=== PATIENT | male | born 1980 | race Caucasian/White ===

== ENCOUNTER 2022-05-04 15:21 | Emergency (ER) | payer SELFPAY ==
[~2022-05-04] VITALS: Ht 172.7 cm; Wt 77.2 kg
[~2022-05-04 15:21] MED LIST: KEFLEX500 M1 PO; KEFLEX500 MG PO; LORTAB 5/3255 MG PO; NAPROSYN500 MG OR; NORCO1 TA1 PO; TAM75CAP OR
[2022-05-04 15:49] VITALS: BP 144/116
[2022-05-04 16:00] VITALS: BP 133/110
[2022-05-04] MEDS ORDERED: CLEOCIN300 MG PO (16:02)
[2022-05-04 16:10] VITALS: BP 133/110
== END 2022-05-04 16:16 | disposition home or self-care (01) | DRG 158 ==
LOC: ED 15:21
DX: K03.81 Cracked tooth (principal); R44.0 Auditory hallucinations; F17.200 Nicotine dependence, unspecified, uncomplicated

== ENCOUNTER 2024-12-20 05:52 | Emergency (ER) | payer SELFPAY ==
[2024-12-20] VITALS (13 sets, daily range): BP systolic 106–130; BP diastolic 67–83
[~2024-12-20] VITALS: Ht 172.7 cm; Wt 85.0 kg
[~2024-12-20 05:52] MED LIST changes: +CLEOCIN300 MG PO
[2024-12-20] MEDS ORDERED: SODIUM CHLORIDE 0.9% 1,000 ML IV ONE ×2 (06:00→07:40)
[2024-12-20] MEDS ORDERED: diazePAM 10 MG/2 ML VIAL IV ONE (06:00)
[2024-12-20 06:16] LABS: BASO% 0.7 % (0-3); EOS% 0.8 % (0-8); HEMATOCRIT 43.5 % (39.0-50.0); HEMOGLOBIN 14.3 g/dl (14.0-18.0); IMMATURE GRANULOCYTES 0.1 % (0.0-5.0); LYMPH% 14.6 % (15-41); MEAN CELL VOLUME 93.3 fL CALC (80.0-100.0); MEAN CORPUSCULAR HGB 30.7 pG CALC (26.0-32.0); MEAN CORPUSCULAR HGB CONC 32.9 g/dL CAL (32.0-36.0); MONO% 11.9 % (2-13); NEUT# 7.14 thou/uL (1.82-7.42); NEUT% 71.9 % (42-76); RED BLOOD COUNT 4.66 mill/uL (4.70-6.10)
[2024-12-20 06:28] LABS: ALBUMIN 4.9 g/dL (3.2-5.0); ALKALINE PHOSPHATASE 76 u/l (38-126); ANION GAP 13 (6-22 (CALC)); BUN 23 mg/dL (9-20); BUN/CREATININE RATIO 18 (12-20 (CALC)); CARBON DIOXIDE 24 mmol/l (22-30); CHLORIDE 108 mmol/l (95-108); CREATININE 1.3 mg/dL (0.7-1.3); ESTIMATED GFR 69 ML/MIN (>=90 (CALC)); ETHYL ALCOHOL 0 mg/dl (0-30); POTASSIUM 3.9 mmol/l (3.5-5.1); SGOT/AST 57 u/l (17-59); SODIUM 141 mmol/l (137-146); TOTAL PROTEIN 7.8 g/dL (6.3-8.2)
[2024-12-20 07:06] LABS: URINE BLOOD DIPSTICK Moderate (NEGATIVE); URINE GLUCOSE - DIPSTICK Negative (NEGATIVE); URINE KETONE 15 mg/dL (NEGATIVE); URINE NITRITE - DIPSTICK Negative (Negative); URINE PH 5.5 (4.5-8.0); URINE PROTEIN - DIPSTICK 100 mg/dL (NEG-TRACE); URINE SPECIFIC GRAVITY >=1.030; URINE UROBILINOGEN - DIPSTICK 0.2 E.U./dL (0.2)
[2024-12-20 07:23] LABS: URINE COLOR Yellow
[2024-12-20 07:24] LABS: URINE LEUK ESTERASE Negative (NEGATIVE)
[2024-12-20 07:25] LABS: URINE BACTERIA MODERATE hpf; URINE EPITHELIAL CELLS MODERATE EPI/hpf (0-FEW); URINE MUCUS FEW hpf (NONE-FEW); URINE SPERM MODERATE hpf (NONE-RARE)
== END 2024-12-20 11:47 | disposition designated cancer center or children's hospital (05) | DRG 897 ==
LOC: ED 05:52
PROVIDERS: Family Medicine
PROC: 0T9B70Z Drainage of Bladder with Drainage Device, Via Natural or Artificial Opening (ICD-10-PCS; principal; 2024-12-20)
DX: F15.151 Other stimulant abuse with stimulant-induced psychotic disorder with hallucinations (principal); F17.200 Nicotine dependence, unspecified, uncomplicated; Z20.822 Contact with and (suspected) exposure to COVID-19
CPT/HCPCS: J3360